=== PATIENT | male | born 1940 | race Hispanic/Latino ===

== ENCOUNTER 2019-06-13 15:58 | Emergency (ER) | payer MEDICARE, OTHER ==
[~2019-06-13] VITALS: Ht 162.6 cm; Wt 87.5 kg
[2019-06-13] MEDS ORDERED: ONDANSETRON HCL INJ 2MG/ML 2ML 2 MG/ML VIAL IV STA (16:25)
[2019-06-13] MEDS ORDERED: NITROGLYCERIN/D5W 200 MCG/ML 250 ML ONE (16:29)
[2019-06-13] MEDS ORDERED: FUROSEMIDE INJ 10 MG/ML 4 ML VIAL IV ONE (16:30)
[2019-06-13] MEDS ORDERED: ASPIRIN 325 MG TAB PO ONE (16:30)
[2019-06-13] MEDS ORDERED: NITROGLYCERIN/D5W 200 MCG/ML 250 ML IV PRN (16:30)
[2019-06-13] MEDS ORDERED: FUROSEMIDE40 MG PO (16:43)
[2019-06-13] MEDS ORDERED: LISINOPRIL10 MG PO (16:43)
[2019-06-13] MEDS ORDERED: OMEPRAZOLE40 MG (16:43)
[2019-06-13] MEDS ORDERED: CRESTOR10 MG (16:43)
[2019-06-13] MEDS ORDERED: NOVOLOG100 UNITS1 (16:43)
[2019-06-13] MEDS ORDERED: ONDANSETRON HCL INJ 2MG/ML 2ML 2 MG/ML VIAL IV ONE (17:00)
--- NOTE | 2019-06-13 17:05 | NUR ---
Contacted [facility] for transfer to [place] for ICU bed.
--- NOTE | 2019-06-13 17:12 | Diagnostic Imaging Report ---
EXAMINATION: CXR 1 [facility] INDICATION: SOB. COMPARISON: None FINDINGS: TUBES and LINES: None. LUNGS: Low volumes with bilateral perihilar and interstitial opacities. Patchy lower lung opacities. Left retrocardiac opacity. Small left and trace right pleural effusions. No evidence of pneumothorax. HEART AND MEDIASTINUM: The cardiomediastinal silhouette is mildly enlarged. BONES AND SOFT TISSUES: No acute osseous lesion. Soft tissues are unremarkable. UPPER ABDOMEN: No free air under the diaphragm. IMPRESSION: Mild cardiomegaly, interstitial edema, small left and trace right pleural effusions. Lower lung zone opacities, likely atelectasis. Infection is possible in the appropriate clinical setting. Signed by: Dr. Alexis Tadeo MD on 06/13/2019 5:09 PM
--- NOTE | 2019-06-13 17:29 | NUR ---
[facility] contacted for transport to [place] ETA 30 minutes
--- NOTE | 2019-06-13 18:35 | NUR ---
[facility] here to transport pt to [facility].
[2019-06-13 18:51] VITALS: BP 154/67
--- NOTE | 2019-06-13 18:51 | NUR ---
Report to FERNANDEZ Dey
== END 2019-06-13 18:54 | disposition other institution (70) ==
LOC: FSED 15:58
DX: R06.09 Other forms of dyspnea (principal); I50.9 Heart failure, unspecified; I10 Essential (primary) hypertension; E11.9 Type 2 diabetes mellitus without complications; Z91.14 Patient's other noncompliance with medication regimen
CPT/HCPCS: 71045; 80048; 80076; 82553; 83880; 84484; 85025; 93005; 96374; 96375; 99284; J1940; J2405